=== PATIENT | male | born 1980 | race Caucasian/White ===

== ENCOUNTER 2018-08-07 17:47 | Emergency (ER) | payer MEDICAID, OTHER ==
[~2018-08-07] VITALS: Ht 162.6 cm; Wt 58.1 kg
[2018-08-07] MEDS ORDERED: HYDR-3326 PO (18:29)
[2018-08-07] MEDS ORDERED: ALEVE PO (18:29)
--- NOTE | 2018-08-07 19:35 | NUR ---
Dr. Jenkins at bedside for MSE.
--- NOTE | 2018-08-07 19:40 | NUR ---
Pt out of ER for xray.
[2018-08-07] MEDS ORDERED: KETOROLAC TROMETHAMINE 60 MG INJ IM ONE ×2 (19:43→19:45)
--- NOTE | 2018-08-07 20:00 | NUR ---
Pt back to Er from xray.
--- NOTE | 2018-08-07 20:35 | NUR ---
Patient discharged to home in stable conditon. States he does not have a specific place to stay at this time but somewhere around [place]. Written and verbal after care instructions given. Patient verbalizes understanding of instructions. Able to ambulate independently and will take the bus. All belongings are with patient at this time.
[2018-08-07 20:40] VITALS: BP 115/75
== END 2018-08-07 20:42 | disposition home or self-care (01) ==
LOC: ER 17:49
DX: M19.172 Post-traumatic osteoarthritis, left ankle and foot (principal); R10.2 Pelvic and perineal pain; M79.651 Pain in right thigh
CPT/HCPCS: 72170; 73551; 73610; 73630; A4663; J1885

== ENCOUNTER 2018-08-11 17:17 | Emergency (ER) | payer OTHER ==
[~2018-08-11] VITALS: Ht 162.6 cm; Wt 58.1 kg
[~2018-08-11 17:17] MED LIST: ALEVE PO; HYDR-3326 PO
[2018-08-11] MEDS ORDERED: NAPR-1009 PO (17:37)
[2018-08-11] MEDS ORDERED: PENICILLIN G BENZATHINE 2.4 MMU/4 ML DISP.SYRIN IM ONE ×2 (18:00→18:08)
--- NOTE | 2018-08-11 18:05 | NUR ---
PT IS IN ROOM #2A. DR ALONSO EVALUATED THE PT.
--- NOTE | 2018-08-11 18:43 | NUR ---
PT WAS D/C TO HOME. D/C INSTRUCTIONS GIVEN TO THE PT.
[2018-08-11 18:44] VITALS: BP 129/87
== END 2018-08-11 18:44 | disposition home or self-care (01) ==
LOC: ER 17:18
DX: Z20.2 Contact with and (suspected) exposure to infections with a predominantly sexual mode of transmission (principal); R53.83 Other fatigue; F17.200 Nicotine dependence, unspecified, uncomplicated; F12.10 Cannabis abuse, uncomplicated; Z59.0 Homelessness
CPT/HCPCS: 36415; 86592; 96372; 99283; A4663

== ENCOUNTER 2018-08-16 21:47 | Emergency (ER) | payer OTHER ==
[~2018-08-16] VITALS: Ht 162.6 cm; Wt 59.0 kg
[~2018-08-16 21:47] MED LIST changes: -ALEVE PO; +NAPR-1009 PO
[2018-08-16] MEDS ORDERED: HYDROCODONE/APAP 10-325 MG TABLET PO ONE (22:45)
[2018-08-16] MEDS ORDERED: KETOROLAC TROMETHAMINE 15 MG INJ IV ONE (22:45)
[2018-08-16] MEDS ORDERED: ASPIRIN 81 MG TAB.CHEW PO ONE (22:45)
[2018-08-16] MEDS ORDERED: ONDANSETRON ODT 4 MG TAB.RAPDIS SL ONE (22:45)
[2018-08-16 22:53] LABS: BASOPHILS # (AUTO) 0.1 K/uL (0.0-8.0); BASOPHILS % (AUTO) 1.2 % (0.0-2.0); EOSINOPHILS # (AUTO) 0.2 K/uL (0.0-0.7); EOSINOPHILS % (AUTO) 1.6 % (0.0-7.0); HEMOGLOBIN 12.5 g/dL (12.5-16.3); LYMPHOCYTES # (AUTO) 3.6 K/uL (20.0-40.0); LYMPHOCYTES % (AUTO) 35.1 % (20.5-51.5); MEAN CORPUSCULAR HGB CONC 35 g/dL (32.5-36.3); MEAN CORPUSCULAR VOLUME 89.7 fL (73.0-96.2); MONOCYTES # (AUTO) 1.1 K/uL (2.0-10.0); MONOCYTES % (AUTO) 10.3 % (0.0-11.0); NEUTROPHILS # (AUTO) 5.3 K/uL (1.8-8.9); NEUTROPHILS % (AUTO) 51.8 % (38.5-71.5); PLATELET COUNT (AUTO) 351 K/uL (152-348); RED BLOOD CELL COUNT(AUTO) 4.01 MIL/uL (4.06-5.63); WHITE BLOOD COUNT (AUTO) 10.3 K/uL (3.6-10.2)
[2018-08-16] MEDS ORDERED: ASPIRIN 81 MG TAB.CHEW ONE (22:54)
[2018-08-16] MEDS ORDERED: HYDROCODONE/APAP 10-325 MG TABLET ONE (22:55)
[2018-08-16] MEDS ORDERED: KETOROLAC TROMETHAMINE 60 MG INJ IM ONE (22:57)
[2018-08-16] MEDS ORDERED: ONDANSETRON ODT 4 MG TAB.RAPDIS ONE (22:58)
[2018-08-16 23:03] LABS: CREATININE 0.9 mg/dL (0.6-1.3); POTASSIUM 3.8 mmol/L (3.5-5.1)
[2018-08-16 23:16] LABS: BILIRUBIN,DIRECT 0.1 mg/dL (0.0-0.2); BILIRUBIN,TOTAL 0.2 mg/dL (0.2-1.0); TOTAL PROTEIN, SERUM 7.3 g/dL (6.4-8.2)
--- NOTE | 2018-08-16 23:32 | NUR ---
SARAH AT BEDSIDE DISCUSSED LAB TEST RESULTS AND XRAY RESULTS AND ALL TEST ARE NORMAL.ADVISED TO FOLLOW UP WITH HIS PRIMARY PHYSICIAN .V/S WNL .NO RESPIRATORY DISTRESS NOTED BREATHING EVEN AND LABORED .
--- NOTE | 2018-08-16 23:34 | NUR ---
Patient discharged to home in stable conditon. Written and verbal after care instructions given. Patient verbalizes understanding of instructions.V/S WNL . NO SOB .AMBULATORY .
--- NOTE | 2018-08-16 23:45 | NUR ---
Patient given written and verbal discharge instructions. Patient verbalizes understanding of instructions. Patient is ambulatory with steady gait. Refuses offer of snf placement. Patient given list of available shelters in surrounding area.
[2018-08-16 23:46] VITALS: BP 120/65
== END 2018-08-16 23:47 | disposition home or self-care (01) ==
LOC: ER 21:48
DX: R05 Cough (principal); R07.9 Chest pain, unspecified; Z71.6 Tobacco abuse counseling; F17.200 Nicotine dependence, unspecified, uncomplicated; F12.10 Cannabis abuse, uncomplicated; Z59.0 Homelessness
CPT/HCPCS: 36415; 71045; 80048; 80076; 83880; 84484; 85025; 93005; 96374; 99285; 99406; A4663; J1885; Q0162; 70030-TC

== ENCOUNTER 2018-08-24 23:07 | Emergency (ER) | payer OTHER ==
[~2018-08-24] VITALS: Ht 162.6 cm; Wt 59.9 kg
--- NOTE | 2018-08-24 23:27 | NUR ---
PT BROUGHT INTRIAGE AREA AND HAD EKG DONE.NO BEDS AVAILABLE AT PRESENT TIME
--- NOTE | 2018-08-25 02:09 | NUR ---
Dr. Jenkins at bedside for MSE.
--- NOTE | 2018-08-25 02:14 | NUR ---
Pt provided urine sample, sent to lab.
[2018-08-25] MEDS ORDERED: PENICILLIN G BENZATHINE 2.4 MMU/4 ML DISP.SYRIN IM ONE ×2 (03:00→03:27)
--- NOTE | 2018-08-25 03:05 | NUR ---
Xray at bedside.
[2018-08-25 03:07] LABS: BASOPHILS # (AUTO) 0.1 K/uL (0.0-8.0); BASOPHILS % (AUTO) 1.1 % (0.0-2.0); EOSINOPHILS # (AUTO) 0.2 K/uL (0.0-0.7); EOSINOPHILS % (AUTO) 1.9 % (0.0-7.0); HEMATOCRIT 36.8 % (36.7-47.1); HEMOGLOBIN 12.8 g/dL (12.5-16.3); LYMPHOCYTES # (AUTO) 3.6 K/uL (20.0-40.0); LYMPHOCYTES % (AUTO) 37.5 % (20.5-51.5); MEAN CORPUSCULAR HEMOGLOBIN 30.9 uug (23.8-33.4); MEAN CORPUSCULAR HGB CONC 35 g/dL (32.5-36.3); MONOCYTES % (AUTO) 10.8 % (0.0-11.0); NEUTROPHILS # (AUTO) 4.7 K/uL (1.8-8.9); NEUTROPHILS % (AUTO) 48.7 % (38.5-71.5); PLATELET COUNT (AUTO) 361 K/uL (152-348); RED BLOOD CELL COUNT(AUTO) 4.13 MIL/uL (4.06-5.63); WHITE BLOOD COUNT (AUTO) 9.7 K/uL (3.6-10.2)
--- NOTE | 2018-08-25 03:10 | NUR ---
Pt out of ER for CT.
[2018-08-25 03:16] LABS: CARBON DIOXIDE 28 mmol/L (21-32); CHLORIDE 109 mmol/L (98-107); CREATININE 0.9 mg/dL (0.6-1.3); GLUCOSE 90 mg/dL (74-106); POTASSIUM 3.9 mmol/L (3.5-5.1); UREA NITROGEN, BLOOD 21 mg/dL (7-18)
--- NOTE | 2018-08-25 03:20 | NUR ---
Pt back to ER from CT.
[2018-08-25 03:22] LABS: ALANINE AMINOTRANSFERASE 27 U/L (16-63); ALKALINE PHOSPHATASE 61 U/L (50-136); ASPARTATE AMINOTRANSFERASE 18 U/L (15-37); BILIRUBIN,DIRECT < 0.1 mg/dL (0.0-0.2); BILIRUBIN,TOTAL 0.1 mg/dL (0.2-1.0)
--- NOTE | 2018-08-25 04:30 | NUR ---
Pt sleeping, no acute signs of distress.
--- NOTE | 2018-08-25 05:30 | NUR ---
Pt sleeping, no acute signs of distress.
--- NOTE | 2018-08-25 06:31 | NUR ---
Pt out of ER for CT.
--- NOTE | 2018-08-25 06:45 | NUR ---
Pt back to ER from CT.
--- NOTE | 2018-08-25 07:01 | NUR ---
Report given to Elma Graham.
--- NOTE | 2018-08-25 07:40 | NUR ---
Patient is resting comfortably in bed with eyes closed. PATIENT IS PAIN FREE AT THIS TIME.
--- NOTE | 2018-08-25 07:41 | NUR ---
Patient given written and verbal discharge instructions. Patient verbalizes understanding of instructions. Patient is ambulatory with steady gait. Refuses offer of half-way placement. Patient given list of available shelters in surrounding area.
== END 2018-08-25 07:44 | disposition home or self-care (01) ==
LOC: ER 23:08
DX: S16.1XXA Strain of muscle, fascia and tendon at neck level, initial encounter (principal); R07.89 Other chest pain; F17.200 Nicotine dependence, unspecified, uncomplicated; F12.10 Cannabis abuse, uncomplicated; Z59.0 Homelessness; X58.XXXA Exposure to other specified factors, initial encounter; Y93.89 Activity, other specified; Y92.89 Other specified places as the place of occurrence of the external cause; Y99.8 Other external cause status
CPT/HCPCS: 36415; 70030-TC; 71045; 72125; 85025; 85730; 93005; A4663

== ENCOUNTER 2018-10-04 20:51 | Emergency (ER) | payer OTHER ==
[~2018-10-04] VITALS: Ht 162.6 cm; Wt 59.0 kg
[2018-10-04 21:29] LABS: BASOPHILS # (AUTO) 0.1 K/uL (0.0-8.0); BASOPHILS % (AUTO) 0.7 % (0.0-2.0); EOSINOPHILS % (AUTO) 0.4 % (0.0-7.0); HEMATOCRIT 42.1 % (36.7-47.1); HEMOGLOBIN 14.5 g/dL (12.5-16.3); LYMPHOCYTES # (AUTO) 2.3 K/uL (20.0-40.0); MEAN CORPUSCULAR HEMOGLOBIN 30.9 uug (23.8-33.4); MEAN CORPUSCULAR HGB CONC 35 g/dL (32.5-36.3); MEAN CORPUSCULAR VOLUME 89.5 fL (73.0-96.2); MONOCYTES # (AUTO) 1.5 K/uL (2.0-10.0); MONOCYTES % (AUTO) 17.3 % (0.0-11.0); NEUTROPHILS # (AUTO) 4.6 K/uL (1.8-8.9); NEUTROPHILS % (AUTO) 54.6 % (38.5-71.5); PLATELET COUNT (AUTO) 401 K/uL (152-348); WHITE BLOOD COUNT (AUTO) 8.4 K/uL (3.6-10.2)
[2018-10-04 21:33] LABS: NEUTROPHILS % (MANUAL) 0 % (42-75)
[2018-10-04 21:37] LABS: ETHANOL < 3 MG/DL (0-0)
[2018-10-04 21:42] LABS: ALANINE AMINOTRANSFERASE 26 U/L (16-63); ALKALINE PHOSPHATASE 86 U/L (50-136); ASPARTATE AMINOTRANSFERASE 17 U/L (15-37); BILIRUBIN,DIRECT 0.1 mg/dL (0.0-0.2); BILIRUBIN,TOTAL 0.5 mg/dL (0.2-1.0); CARBON DIOXIDE 26 mmol/L (21-32); CHLORIDE 97 mmol/L (98-107); CREATININE 0.8 mg/dL (0.6-1.3); GLUCOSE 95 mg/dL (74-106); POTASSIUM 3.5 mmol/L (3.5-5.1); TOTAL PROTEIN, SERUM 8.7 g/dL (6.4-8.2); UREA NITROGEN, BLOOD 12 mg/dL (7-18)
[2018-10-04] MEDS ORDERED: OLANZAPINE 5 MG TABLET PO ONE (21:45)
[2018-10-04] MEDS ORDERED: LORAZEPAM 0.5 MG TABLET PO ONE (21:45)
[2018-10-04] MEDS ORDERED: LORAZEPAM 1 MG TABLET ONE (21:46)
[2018-10-04] MEDS ORDERED: OLANZAPINE 5 MG TABLET ONE (21:46)
[2018-10-04] MEDS ORDERED: SERT50TA PO (21:49)
[2018-10-04] MEDS ORDERED: RISP4TAB4 PO (21:49)
[2018-10-04 21:52] LABS: ACETAMINOPHEN < 2.0 ug/mL (10-30)
[2018-10-04 22:42] LABS: *BILIRUBIN,URIN NEGATIVE (NEGATIVE); *BLOOD, URINE NEGATIVE (NEGATIVE); *CLARITY,URINE CLEAR (CLEAR); *COLOR,URINE YELLOW (YELLOW); *KETONES,URINE TRACE (NEGATIVE); *PROTEIN,URINE NEGATIVE (NEGATIVE); *UROBILINOGEN,URINE 0.2 E.U./dl (NORMAL); LEUKOCYTE ESTERASE ,URINE NEGATIVE (NEGATIVE); NITRITE, URINE NEGATIVE (NEGATIVE); UGLUCOSE NEGATIVE (NEGATIVE)
[2018-10-04 22:53] LABS: *AMPHETAMINE, URINE POSITIVE (NEGATIVE); *BARBITURATE, URINE NEGATIVE (NEGATIVE); *CANNABINOID, URINE POSITIVE (NEGATIVE); *COCCAINE, URINE NEGATIVE (NEGATIVE); *OPIATE, URINE NEGATIVE (NEGATIVE); *PHENCYCLIDINE SCREEN,URINE NEGATIVE (NEGATIVE)
[2018-10-04 23:01] LABS: BACTERIA,URINE NONE SEEN /HPF (NONE SEEN); MUCUS,URINE MODERATE /LPF (0-FEW); RBC,URINE NONE SEEN /HPF (0-3); SQUAMOUS EPITHELIAL CELL,UR FEW /HPF (NONE SEEN); WBC,URINE 0-3 /HPF (0-3)
--- NOTE | 2018-10-04 23:44 | NUR ---
paged Radha Albert RN for PET eval.
--- NOTE | 2018-10-05 00:30 | NUR ---
Patient is resting comfortably in bed with eyes closed
--- NOTE | 2018-10-05 01:57 | NUR ---
Patient is resting comfortably in bed with eyes closed
--- NOTE | 2018-10-05 03:10 | NUR ---
Patient is resting comfortably in bed with eyes closed
--- NOTE | 2018-10-05 04:30 | NUR ---
Patient is resting comfortably in bed with eyes closed
--- NOTE | 2018-10-05 05:33 | NUR ---
Patient is resting comfortably in bed with eyes closed
--- NOTE | 2018-10-05 06:10 | NUR ---
DIAMOND Garcia, at bedside for PET evaluation.
--- NOTE | 2018-10-05 07:55 | NUR ---
wander luevano provided for pt.
--- NOTE | 2018-10-05 08:00 | NUR ---
amanda called and wanted to make sure that the pt understands that the fascility is smoke free and patches would be provided. pt has to cooperate and takes meds. no aggressive behavior is tolerated. pt accepted the criteria and is willing to be transferd to [facility].
--- NOTE | 2018-10-05 08:14 | NUR ---
talked to amanda at [facility]. pt is going to [id number] to liana langley md is dr. Mcintyre.
--- NOTE | 2018-10-05 08:15 | NUR ---
called jamel roach 4 hrs, rout number [id number], called supervisor asbestos removal regarding the eta.
--- NOTE | 2018-10-05 09:19 | NUR ---
per ticket sales supervisor, eta for ambulance now is 1100.
--- NOTE | 2018-10-05 10:23 | NUR ---
gave reportt to brandt at [place] [phone]
--- NOTE | 2018-10-05 12:09 | NUR ---
Pt transfered [facility] NAD noted upon transfer, pt cooperative and verbalized understanding of plan of care.
== END 2018-10-05 12:18 | disposition short-term general hospital (02) ==
LOC: ER 20:55
DX: R45.851 Suicidal ideations (principal); F20.9 Schizophrenia, unspecified; F15.10 Other stimulant abuse, uncomplicated; F11.10 Opioid abuse, uncomplicated; F17.200 Nicotine dependence, unspecified, uncomplicated; Z59.0 Homelessness
CPT/HCPCS: 36415; 80048; 80076; 80307; 81001; 85025; 93005; 99285; G0480 ×2; G0481; A4663

== ENCOUNTER 2018-10-11 16:20 | Emergency (ER) | payer OTHER ==
[~2018-10-11] VITALS: Ht 162.6 cm; Wt 59.0 kg
[~2018-10-11 16:20] MED LIST changes: +RISP4TAB4 PO; +SERT50TA PO
[2018-10-11] MEDS ORDERED: LIDOCAINE 5% PATCH TD ONE ×2 (17:15→17:23)
[2018-10-11] MEDS ORDERED: GABAPENTIN 400 MG CAPSULE PO ONE (17:15)
[2018-10-11] MEDS ORDERED: GABAPENTIN 400 MG CAPSULE ONE (17:23)
[2018-10-11 17:43] VITALS: BP 133/77
== END 2018-10-11 17:44 | disposition home or self-care (01) ==
LOC: ER 16:22
DX: G89.29 Other chronic pain (principal); M25.572 Pain in left ankle and joints of left foot; F12.10 Cannabis abuse, uncomplicated; F17.200 Nicotine dependence, unspecified, uncomplicated; Z59.0 Homelessness
CPT/HCPCS: 73600; A4663

== ENCOUNTER 2018-10-11 21:44 | Emergency (ER) | payer OTHER ==
[~2018-10-11] VITALS: Ht 162.6 cm; Wt 59.0 kg
--- NOTE | 2018-10-11 22:09 | NUR ---
Patient walked in to ER c/o hearing voices. Patient states no SI or HI, requesting to return to [facility], which he has been transferred to from this ER before. To room 3A.
[2018-10-11] MEDS ORDERED: OLANZAPINE 5 MG TABLET ONE (22:13)
[2018-10-11] MEDS ORDERED: OLANZAPINE 5 MG TABLET PO ONE (22:15)
[2018-10-11 22:27] LABS: BASOPHILS # (AUTO) 0.1 K/uL (0.0-8.0); BASOPHILS % (AUTO) 0.9 % (0.0-2.0); EOSINOPHILS # (AUTO) 0.1 K/uL (0.0-0.7); EOSINOPHILS % (AUTO) 1.4 % (0.0-7.0); HEMATOCRIT 36.2 % (36.7-47.1); HEMOGLOBIN 12.5 g/dL (12.5-16.3); LYMPHOCYTES # (AUTO) 3.8 K/uL (20.0-40.0); MEAN CORPUSCULAR HEMOGLOBIN 31.1 uug (23.8-33.4); MEAN CORPUSCULAR HGB CONC 35 g/dL (32.5-36.3); MEAN CORPUSCULAR VOLUME 90.1 fL (73.0-96.2); MONOCYTES # (AUTO) 1.6 K/uL (2.0-10.0); MONOCYTES % (AUTO) 15.3 % (0.0-11.0); NEUTROPHILS # (AUTO) 4.7 K/uL (1.8-8.9); NEUTROPHILS % (AUTO) 45.4 % (38.5-71.5); PLATELET COUNT (AUTO) 341 K/uL (152-348); RED BLOOD CELL COUNT(AUTO) 4.02 MIL/uL (4.06-5.63); WHITE BLOOD COUNT (AUTO) 10.3 K/uL (3.6-10.2)
[2018-10-11 22:31] LABS: *BILIRUBIN,URIN NEGATIVE (NEGATIVE); *BLOOD, URINE NEGATIVE (NEGATIVE); *CLARITY,URINE CLEAR (CLEAR); *COLOR,URINE YELLOW (YELLOW); *KETONES,URINE NEGATIVE (NEGATIVE); *PROTEIN,URINE NEGATIVE (NEGATIVE); *UROBILINOGEN,URINE 0.2 E.U./dl (NORMAL); LEUKOCYTE ESTERASE ,URINE NEGATIVE (NEGATIVE); NITRITE, URINE NEGATIVE (NEGATIVE); UGLUCOSE NEGATIVE (NEGATIVE)
[2018-10-11 22:36] LABS: CARBON DIOXIDE 28 mmol/L (21-32); CHLORIDE 104 mmol/L (98-107); GLUCOSE 97 mg/dL (74-106); POTASSIUM 3.8 mmol/L (3.5-5.1); UREA NITROGEN, BLOOD 17 mg/dL (7-18)
[2018-10-11 22:40] LABS: WBC,URINE NONE SEEN /HPF (0-3)
[2018-10-11 22:43] LABS: BAND % (MANUAL) 2 % (0-10); EOSINOPHILS % (MANUAL) 1 % (0-8); LYMPHOCYTES % (MANUAL) 36 % (20-40); MONOCYTES % (MANUAL) 12 % (2-10); NEUTROPHILS % (MANUAL) 49 % (42-75)
[2018-10-11 22:45] LABS: ETHANOL < 3 MG/DL (0-0)
[2018-10-11 22:46] LABS: *AMPHETAMINE, URINE NEGATIVE (NEGATIVE); *BARBITURATE, URINE NEGATIVE (NEGATIVE); *CANNABINOID, URINE POSITIVE (NEGATIVE); *COCCAINE, URINE NEGATIVE (NEGATIVE); *OPIATE, URINE NEGATIVE (NEGATIVE); *PHENCYCLIDINE SCREEN,URINE NEGATIVE (NEGATIVE)
[2018-10-11 22:49] LABS: ACETAMINOPHEN < 2.0 ug/mL (10-30); ALANINE AMINOTRANSFERASE 23 U/L (16-63); ALKALINE PHOSPHATASE 67 U/L (50-136); ASPARTATE AMINOTRANSFERASE 14 U/L (15-37); BILIRUBIN,DIRECT 0.1 mg/dL (0.0-0.2); BILIRUBIN,TOTAL 0.1 mg/dL (0.2-1.0)
--- NOTE | 2018-10-11 23:00 | NUR ---
Patient medically cleared per ERMD, call placed to Art Capilla (SENIOR UNIX ADMINISTRATOR) for evaluation, ETA 60 min.
--- NOTE | 2018-10-12 00:15 | NUR ---
Patient accepted by Dr. PARKER at [facility].
--- NOTE | 2018-10-12 00:20 | NUR ---
Call placed to [facility] for transportation to [facility], Trip #[phone], ETA 0130.
--- NOTE | 2018-10-12 01:20 | NUR ---
SBAR report given to Sis at [facility].
--- NOTE | 2018-10-12 01:59 | NUR ---
Patient Tranfers to outside Facility Physician: Dr. PARKER Location: [facility]
== END 2018-10-12 02:00 | disposition short-term general hospital (02) ==
LOC: ER 21:46
DX: F29 Unspecified psychosis not due to a substance or known physiological condition (principal); Z04.6 Encounter for general psychiatric examination, requested by authority; Z59.0 Homelessness; Z79.899 Other long term (current) drug therapy
CPT/HCPCS: 36415; 71045; 80048; 80076; 80307; 81001; 85025; 93005; 99285; G0480 ×2; G0481; A4663

== ENCOUNTER 2018-11-20 02:48 | Emergency (ER) | END 2018-11-20 08:49 | disposition home or self-care (01) | DX: F25.9 Schizoaffective disorder, unspecified (principal); F11.10 Opioid abuse, uncomplicated; F15.10 Other stimulant abuse, uncomplicated; Z59.0 Homelessness | CPT/HCPCS: 36415; 71045; 80048; 80076; 80307; 81001; 85025; 96372; 99284; G0480 ×2; G0481; J2060 ==

== ENCOUNTER 2018-12-20 15:02 | Emergency (ER) | payer OTHER ==
[~2018-12-20] VITALS: Ht 162.6 cm; Wt 61.7 kg
[2018-12-20] MEDS ORDERED: RISP3TAB5 PO (15:14)
[2018-12-20] MEDS ORDERED: COGENTIN (15:14)
[2018-12-20] MEDS ORDERED: SERT100T PO (15:14)
--- NOTE | 2018-12-20 15:17 | NUR ---
PT A/OX4, PRESENTS TO THE ER C/O SI. PT REPORTS AUDITORY HALLUCINATIONS THAT ARE TELLING HIM TO HURT HIMSELF - HAS A PLAN TO USE A KNIFE TO CUT AND STAB HIMSELF BUT DOES NOT HAVE A KNIFE IN POSSESSION. SUICIDE PRECAUTIONS OBSERVED - ALL BELONGINGS OUT OF PT'S ROOM AND AT NURSING STATION. PT DENIES PAIN, C/P, SOB, N/V/D, DIZZINESS, HEADACHE.
--- NOTE | 2018-12-20 15:21 | NUR ---
CALLED SECURITY TO REQUEST FOR 1:1 SITTER FOR SUICIDE PRECAUTION.
--- NOTE | 2018-12-20 15:22 | NUR ---
NURSING AGRONOMY PROFESSOR AWARE. SECURITY AT BEDSIDE FOR 1:1 OBSERVATION.
--- NOTE | 2018-12-20 15:30 | NUR ---
RECYCLABLE MATERIALS DISTRIBUTOR AT BEDSIDE.
[2018-12-20 15:31] LABS: *BILIRUBIN,URIN NEGATIVE (NEGATIVE); *BLOOD, URINE NEGATIVE (NEGATIVE); *CLARITY,URINE CLEAR (CLEAR); *COLOR,URINE YELLOW (YELLOW); *KETONES,URINE TRACE (NEGATIVE); *UROBILINOGEN,URINE 0.2 E.U./dl (NORMAL); LEUKOCYTE ESTERASE ,URINE NEGATIVE (NEGATIVE); NITRITE, URINE NEGATIVE (NEGATIVE); UGLUCOSE NEGATIVE (NEGATIVE)
[2018-12-20 15:40] LABS: BASOPHILS % (AUTO) 0.6 % (0.0-2.0); EOSINOPHILS # (AUTO) 0.1 K/uL (0.0-0.7); EOSINOPHILS % (AUTO) 1.7 % (0.0-7.0); HEMATOCRIT 39.6 % (36.7-47.1); HEMOGLOBIN 13.1 g/dL (12.5-16.3); LYMPHOCYTES # (AUTO) 2.2 K/uL (20.0-40.0); LYMPHOCYTES % (AUTO) 31.2 % (20.5-51.5); MEAN CORPUSCULAR HEMOGLOBIN 29.4 uug (23.8-33.4); MEAN CORPUSCULAR HGB CONC 33 g/dL (32.5-36.3); MONOCYTES # (AUTO) 0.8 K/uL (2.0-10.0); MONOCYTES % (AUTO) 10.6 % (0.0-11.0); NEUTROPHILS % (AUTO) 55.9 % (38.5-71.5); PLATELET COUNT (AUTO) 332 K/uL (152-348); RED BLOOD CELL COUNT(AUTO) 4.45 MIL/uL (4.06-5.63); WHITE BLOOD COUNT (AUTO) 7.2 K/uL (3.6-10.2)
[2018-12-20 15:41] LABS: MUCUS,URINE MODERATE /LPF (0-FEW); WBC,URINE 0-3 /HPF (0-3)
[2018-12-20 15:46] LABS: CARBON DIOXIDE 31 mmol/L (21-32); CHLORIDE 99 mmol/L (98-107); GLUCOSE 100 mg/dL (74-106); POTASSIUM 3.6 mmol/L (3.5-5.1); UREA NITROGEN, BLOOD 9 mg/dL (7-18)
--- NOTE | 2018-12-20 15:51 | NUR ---
CARLOS BILLY AT BEDSIDE FOR MSE.
[2018-12-20 15:52] LABS: ALANINE AMINOTRANSFERASE 20 U/L (16-63); ALKALINE PHOSPHATASE 67 U/L (50-136); ASPARTATE AMINOTRANSFERASE 11 U/L (15-37); BILIRUBIN,DIRECT 0.1 mg/dL (0.0-0.2); BILIRUBIN,TOTAL 0.2 mg/dL (0.2-1.0); ETHANOL < 3 MG/DL (0-0); TOTAL PROTEIN, SERUM 7.6 g/dL (6.4-8.2)
[2018-12-20 15:55] LABS: *AMPHETAMINE, URINE POSITIVE (NEGATIVE); *BARBITURATE, URINE NEGATIVE (NEGATIVE); *CANNABINOID, URINE POSITIVE (NEGATIVE); *COCCAINE, URINE NEGATIVE (NEGATIVE); *OPIATE, URINE NEGATIVE (NEGATIVE); *PHENCYCLIDINE SCREEN,URINE NEGATIVE (NEGATIVE)
--- NOTE | 2018-12-20 16:00 | NUR ---
CALLED JACEK POPE RN, CRISIS ANODE REBUILDER, FOR PSYCH ETHEL. ETA 1 HOUR.
--- NOTE | 2018-12-20 16:47 | NUR ---
JACEK RN, AT PT'S BEDSIDE FOR CRISIS EVAL.
--- NOTE | 2018-12-20 18:00 | NUR ---
PT RESTING COMFORTABLY IN BED. 1:1 SITTER AT BEDSIDE. PT WILL BE ADMITTED VOLUNTARILY AT [facility]. [id number] [place], [place] ADMITTING PSYCH: DR. PEÑA REPORT TO BE GIVEN TO NURSE [phone] EXT [phone]
--- NOTE | 2018-12-20 18:08 | NUR ---
CALLED [facility] FOR TRANSFER TO [facility]. TRIP # [id number] 1999 SPOKE W/ ATIF.
--- NOTE | 2018-12-20 18:55 | NUR ---
SHIFT REPORT GIVEN TO ZACHAYR HATHAWAY.
--- NOTE | 2018-12-20 19:26 | NUR ---
[facility] called for update for transport. Johnie stated they are en route 12 minutes.
--- NOTE | 2018-12-20 20:40 | NUR ---
Gave report to Melia from UNIT 2 at [facility].
--- NOTE | 2018-12-20 20:40 | NUR ---
Patient Transferred to outside Facility Physician:Dr. Presley Location: [facility]
--- NOTE | 2018-12-20 20:47 | NUR ---
Patient discharged another facility via [facility]. Written and verbal after care instructions given. Patient verbalizes understanding of instructions. Patient transported out of dept via stretcher and two [facility] personnel
[2018-12-20 20:48] VITALS: BP 135/70
== END 2018-12-20 20:47 | disposition home or self-care (01) ==
LOC: ER 15:03
DX: F25.9 Schizoaffective disorder, unspecified (principal); F29 Unspecified psychosis not due to a substance or known physiological condition; F11.10 Opioid abuse, uncomplicated; F15.10 Other stimulant abuse, uncomplicated; Z59.0 Homelessness; Z79.1 Long term (current) use of non-steroidal anti-inflammatories (NSAID); Z79.899 Other long term (current) drug therapy
CPT/HCPCS: 36415; 80048; 80076; 80307; 81001; 85025; 99285; G0480; A4663

== ENCOUNTER 2019-01-16 18:33 | Emergency (ER) | payer OTHER ==
[~2019-01-16] VITALS: Ht 162.6 cm; Wt 59.9 kg
[~2019-01-16 18:33] MED LIST changes: +COGENTIN; -HYDR-3326 PO; -NAPR-1009 PO; +RISP3TAB5 PO; -RISP4TAB4 PO; +SERT100T PO; -SERT50TA PO
--- NOTE | 2019-01-16 19:10 | NUR ---
Urine & blood collected, pending medical clearance & psych evaluation@this time-SBAR to TIM Betancourt
--- NOTE | 2019-01-16 19:16 | NUR ---
Patient eating in bed. NAD
[2019-01-16 19:20] LABS: BASOPHILS # (AUTO) 0.1 K/uL (0.0-8.0); BASOPHILS % (AUTO) 0.7 % (0.0-2.0); EOSINOPHILS # (AUTO) 0.1 K/uL (0.0-0.7); EOSINOPHILS % (AUTO) 0.5 % (0.0-7.0); HEMATOCRIT 37.9 % (36.7-47.1); LYMPHOCYTES # (AUTO) 2.7 K/uL (20.0-40.0); LYMPHOCYTES % (AUTO) 20.4 % (20.5-51.5); MEAN CORPUSCULAR HGB CONC 34 g/dL (32.5-36.3); MEAN CORPUSCULAR VOLUME 87.5 fL (73.0-96.2); MONOCYTES # (AUTO) 1.4 K/uL (2.0-10.0); MONOCYTES % (AUTO) 10.3 % (0.0-11.0); NEUTROPHILS # (AUTO) 8.9 K/uL (1.8-8.9); NEUTROPHILS % (AUTO) 68.1 % (38.5-71.5); PLATELET COUNT (AUTO) 305 K/uL (152-348); RED BLOOD CELL COUNT(AUTO) 4.33 MIL/uL (4.06-5.63); WHITE BLOOD COUNT (AUTO) 13.1 K/uL (3.6-10.2)
[2019-01-16 19:28] LABS: CARBON DIOXIDE 25 mmol/L (21-32); CHLORIDE 100 mmol/L (98-107); CREATININE 0.8 mg/dL (0.6-1.3); GLUCOSE 131 mg/dL (74-106); POTASSIUM 3.5 mmol/L (3.5-5.1); UREA NITROGEN, BLOOD 17 mg/dL (7-18)
--- NOTE | 2019-01-16 19:29 | NUR ---
[facility] crisis team called. ETA 1 hour.
[2019-01-16 19:31] LABS: *AMPHETAMINE, URINE NEGATIVE (NEGATIVE); *BARBITURATE, URINE NEGATIVE (NEGATIVE); *CANNABINOID, URINE POSITIVE (NEGATIVE); *COCCAINE, URINE NEGATIVE (NEGATIVE); *OPIATE, URINE NEGATIVE (NEGATIVE); *PHENCYCLIDINE SCREEN,URINE NEGATIVE (NEGATIVE)
[2019-01-16 19:39] LABS: ETHANOL 137 MG/DL (0-0)
[2019-01-16 19:42] LABS: ALANINE AMINOTRANSFERASE 34 U/L (16-63); ALKALINE PHOSPHATASE 69 U/L (50-136); ASPARTATE AMINOTRANSFERASE 25 U/L (15-37); BILIRUBIN,DIRECT < 0.1 mg/dL (0.0-0.2); BILIRUBIN,TOTAL 0.2 mg/dL (0.2-1.0); TOTAL PROTEIN, SERUM 8.4 g/dL (6.4-8.2)
[2019-01-16 19:45] LABS: ACETAMINOPHEN < 2.0 ug/mL (10-30)
[2019-01-16 22:15] LABS: *BILIRUBIN,URIN NEGATIVE (NEGATIVE); *BLOOD, URINE NEGATIVE (NEGATIVE); *CLARITY,URINE CLOUDY (CLEAR); *COLOR,URINE YELLOW (YELLOW); *KETONES,URINE NEGATIVE (NEGATIVE); *UROBILINOGEN,URINE 0.2 E.U./dl (NORMAL); LEUKOCYTE ESTERASE ,URINE NEGATIVE (NEGATIVE); NITRITE, URINE NEGATIVE (NEGATIVE); PH,URINE 5.5 (5.0-8.0); UGLUCOSE NEGATIVE (NEGATIVE)
[2019-01-16 22:31] LABS: MUCUS,URINE MODERATE /LPF (0-FEW); URINE AMORPHOUS URATE MANY /HPF; WBC,URINE NONE SEEN /HPF (0-3)
--- NOTE | 2019-01-16 23:16 | NUR ---
Patient sleeping in bed. NAD.
--- NOTE | 2019-01-16 23:45 | NUR ---
Faxed UA and Current alcohol level to [facility]
--- NOTE | 2019-01-17 01:05 | NUR ---
Patient in bed awake, no acute distress noted at this time.
[2019-01-17] MEDS ORDERED: ACETAMINOPHEN 325 MG TABLET PO ONE (01:45)
[2019-01-17] MEDS ORDERED: ACETAMINOPHEN 325 MG TABLET ONE (01:47)
--- NOTE | 2019-01-17 01:49 | NUR ---
Call to [facility] placed, spoke to Yan. ETA 10-15 minutes. Ticket #[id number]
--- NOTE | 2019-01-17 01:49 | NUR ---
Patient accepted at [facility] by Dr. Presley. Nurse to nurse report @ , ext [phone]
--- NOTE | 2019-01-17 02:51 | NUR ---
Pt. admitted to [facility] , under care of Dr. Serrano Report given to Mariposa. Patient NAD stable for transfer.
== END 2019-01-17 02:55 | disposition other institution (70) ==
LOC: ER 18:34
DX: R44.0 Auditory hallucinations (principal); F32.9 Major depressive disorder, single episode, unspecified; F17.290 Nicotine dependence, other tobacco product, uncomplicated; F11.10 Opioid abuse, uncomplicated; F15.10 Other stimulant abuse, uncomplicated; Z59.0 Homelessness; Z79.899 Other long term (current) drug therapy
CPT/HCPCS: 36415; 80048; 80076; 80307; 81001; 85025; 99285; 99406; G0480 ×3; G0481; A4663

== ENCOUNTER 2019-01-21 15:33 | Emergency (ER) | payer OTHER ==
[~2019-01-21] VITALS: Ht 162.6 cm; Wt 59.0 kg
--- NOTE | 2019-01-21 16:01 | NUR ---
PATIENT IS AMBULATORY, HE IS AWAKE AND ALERT...
--- NOTE | 2019-01-21 17:19 | NUR ---
SECURITY AT BEDSIDE FOR CONSTANT OBSERVATION. PATIENT'S BELONGINGS AWAY FROM HIM
--- NOTE | 2019-01-21 17:37 | NUR ---
PATIENT HAS A SLEEPING BAG AND LONG PANTS, LONG SLEEVE SHIRT AND SOME SNACKS IN A BIG GREEN BAG WHICH IS AT THE NURSES STATION. HE ATE 2 COOKIES AND IS NOW SITTING UP EATING A WARM DINNER.
[2019-01-21 17:39] LABS: BASOPHILS # (AUTO) 0.1 K/uL (0.0-8.0); BASOPHILS % (AUTO) 0.8 % (0.0-2.0); EOSINOPHILS # (AUTO) 0.1 K/uL (0.0-0.7); EOSINOPHILS % (AUTO) 1.3 % (0.0-7.0); HEMOGLOBIN 12.2 g/dL (12.5-16.3); LYMPHOCYTES # (AUTO) 2.4 K/uL (20.0-40.0); LYMPHOCYTES % (AUTO) 27.7 % (20.5-51.5); MEAN CORPUSCULAR HEMOGLOBIN 28.7 uug (23.8-33.4); MEAN CORPUSCULAR HGB CONC 33 g/dL (32.5-36.3); MEAN CORPUSCULAR VOLUME 87.1 fL (73.0-96.2); MONOCYTES # (AUTO) 0.8 K/uL (2.0-10.0); MONOCYTES % (AUTO) 8.7 % (0.0-11.0); NEUTROPHILS # (AUTO) 5.3 K/uL (1.8-8.9); NEUTROPHILS % (AUTO) 61.5 % (38.5-71.5); PLATELET COUNT (AUTO) 303 K/uL (152-348); RED BLOOD CELL COUNT(AUTO) 4.24 MIL/uL (4.06-5.63); WHITE BLOOD COUNT (AUTO) 8.7 K/uL (3.6-10.2)
--- NOTE | 2019-01-21 17:40 | NUR ---
HOMELESS CHECKLIST INITIATED BUT NOT YET COMPLETE...
[2019-01-21 17:47] LABS: *BILIRUBIN,URIN NEGATIVE (NEGATIVE); *BLOOD, URINE NEGATIVE (NEGATIVE); *CLARITY,URINE CLEAR (CLEAR); *COLOR,URINE YELLOW (YELLOW); *KETONES,URINE NEGATIVE (NEGATIVE); *UROBILINOGEN,URINE 0.2 E.U./dl (NORMAL); LEUKOCYTE ESTERASE ,URINE NEGATIVE (NEGATIVE); NITRITE, URINE NEGATIVE (NEGATIVE); UGLUCOSE NEGATIVE (NEGATIVE)
[2019-01-21 17:49] LABS: CARBON DIOXIDE 27 mmol/L (21-32); CHLORIDE 99 mmol/L (98-107); CREATININE 0.7 mg/dL (0.6-1.3); GLUCOSE 111 mg/dL (74-106); POTASSIUM 3.6 mmol/L (3.5-5.1); UREA NITROGEN, BLOOD 10 mg/dL (7-18)
[2019-01-21 17:59] LABS: *AMPHETAMINE, URINE NEGATIVE (NEGATIVE); *BARBITURATE, URINE NEGATIVE (NEGATIVE); *CANNABINOID, URINE POSITIVE (NEGATIVE); *COCCAINE, URINE NEGATIVE (NEGATIVE); *OPIATE, URINE POSITIVE (NEGATIVE); *PHENCYCLIDINE SCREEN,URINE NEGATIVE (NEGATIVE)
[2019-01-21 18:00] LABS: MUCUS,URINE FEW /LPF (0-FEW); WBC,URINE NONE SEEN /HPF (0-3)
[2019-01-21 18:00] LABS: ETHANOL 109 MG/DL (0-0)
[2019-01-21 18:02] LABS: ALANINE AMINOTRANSFERASE 24 U/L (16-63); ALKALINE PHOSPHATASE 77 U/L (50-136); ASPARTATE AMINOTRANSFERASE 17 U/L (15-37); BILIRUBIN,DIRECT 0.1 mg/dL (0.0-0.2); BILIRUBIN,TOTAL 0.3 mg/dL (0.2-1.0); TOTAL PROTEIN, SERUM 8.1 g/dL (6.4-8.2)
[2019-01-21 18:05] LABS: ACETAMINOPHEN < 2.0 ug/mL (10-30)
--- NOTE | 2019-01-21 18:07 | NUR ---
I CALLED [facility] GUEVARA FOR EVAL...
--- NOTE | 2019-01-21 18:30 | NUR ---
PAOLA MCKEON SPEAKING TO PATIENT.
--- NOTE | 2019-01-21 18:52 | NUR ---
PATIENT STATES HE HAS HEALTH INSURANCE AND DOES NOT NEED HELP WITH THAT. STATES HE USE TO LIVE IN [place] WHERE HIS PARENTS LIVE BUT HAS BEEN HOMELESS SINCE HE MOVED TO [place]. 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 STATES HE DOES ABUSE DRUGS AND ALCOHOL. HE IS AMBULATORY WITH STEADY GAIT.
--- NOTE | 2019-01-21 19:03 | NUR ---
HAND OFF REPORT GIVEN TO ALF DUMONT
--- NOTE | 2019-01-21 20:16 | NUR ---
Called [facility] intake, spoke herlinda Gomez, regarding update for pt voluntary admission/beds available. Pending call back from [place].
--- NOTE | 2019-01-21 21:23 | NUR ---
Caroline Niño ([facility] intake). Pt to be transferred to [facility]. Admitting is Dr. Moe. Phone# for report is [phone]
--- NOTE | 2019-01-21 21:30 | NUR ---
Gave report to IJ
--- NOTE | 2019-01-21 21:41 | NUR ---
Romeo patino for transportation to [facility]. ETA 1 hr @ 0709. Trip#[phone]
--- NOTE | 2019-01-21 22:22 | NUR ---
[facility] [address] here to transport pt to [facility]. VSS. No acute distress noted. All belongings w pt.
== END 2019-01-21 22:36 | disposition short-term general hospital (02) ==
LOC: ER 15:35
DX: F32.9 Major depressive disorder, single episode, unspecified (principal); F20.9 Schizophrenia, unspecified; F17.200 Nicotine dependence, unspecified, uncomplicated; F15.10 Other stimulant abuse, uncomplicated; F11.10 Opioid abuse, uncomplicated; Z79.899 Other long term (current) drug therapy
CPT/HCPCS: 36415; 71045; 80048; 80076; 80307; 81001; 85025; 93005; 99285; G0480 ×2; G0481; A4663

== ENCOUNTER 2019-01-30 23:27 | Emergency (ER) | payer OTHER ==
[~2019-01-30] VITALS: Ht 162.6 cm; Wt 61.7 kg
--- NOTE | 2019-01-31 00:18 | NUR ---
Pt. ambulated into ED w/ c/o SI w/ a plan - states he would jump off a bridge, reports AH that tell him to hurt himself and reports hx of schizoaffective disorder - states he is compliant on medication, pt. put close to nursing station w/ door kept open and put on suicide precautions,
[2019-01-31 00:19] LABS: BASOPHILS # (AUTO) 0.1 K/uL (0.0-8.0); BASOPHILS % (AUTO) 0.5 % (0.0-2.0); EOSINOPHILS # (AUTO) 0.1 K/uL (0.0-0.7); EOSINOPHILS % (AUTO) 0.4 % (0.0-7.0); HEMATOCRIT 37.3 % (36.7-47.1); HEMOGLOBIN 12.9 g/dL (12.5-16.3); LYMPHOCYTES # (AUTO) 2.2 K/uL (20.0-40.0); MEAN CORPUSCULAR HGB CONC 35 g/dL (32.5-36.3); MEAN CORPUSCULAR VOLUME 86.8 fL (73.0-96.2); MONOCYTES % (AUTO) 8.6 % (0.0-11.0); NEUTROPHILS # (AUTO) 8.8 K/uL (1.8-8.9); NEUTROPHILS % (AUTO) 72.5 % (38.5-71.5); PLATELET COUNT (AUTO) 295 K/uL (152-348); WHITE BLOOD COUNT (AUTO) 12.1 K/uL (3.6-10.2)
--- NOTE | 2019-01-31 00:23 | NUR ---
Called Drying Room Supervisor for sitter, pt. belongings bagged and put in nursing station,
[2019-01-31 00:25] LABS: CARBON DIOXIDE 29 mmol/L (21-32); CHLORIDE 96 mmol/L (98-107); CREATININE 0.7 mg/dL (0.6-1.3); GLUCOSE 99 mg/dL (74-106); POTASSIUM 3.4 mmol/L (3.5-5.1); UREA NITROGEN, BLOOD 12 mg/dL (7-18)
[2019-01-31 00:31] LABS: ALANINE AMINOTRANSFERASE 20 U/L (16-63); ALKALINE PHOSPHATASE 73 U/L (50-136); ASPARTATE AMINOTRANSFERASE 19 U/L (15-37); BILIRUBIN,DIRECT 0.1 mg/dL (0.0-0.2); BILIRUBIN,TOTAL 0.3 mg/dL (0.2-1.0); TOTAL PROTEIN, SERUM 8.7 g/dL (6.4-8.2)
--- NOTE | 2019-01-31 00:33 | NUR ---
Security at bedside for pt. safety
[2019-01-31 00:38] LABS: ACETAMINOPHEN < 2.0 ug/mL (10-30)
[2019-01-31 00:42] LABS: ETHANOL < 3 MG/DL (0-0)
[2019-01-31 00:58] LABS: *AMPHETAMINE, URINE POSITIVE (NEGATIVE); *BARBITURATE, URINE NEGATIVE (NEGATIVE); *CANNABINOID, URINE POSITIVE (NEGATIVE); *COCCAINE, URINE POSITIVE (NEGATIVE); *OPIATE, URINE POSITIVE (NEGATIVE); *PHENCYCLIDINE SCREEN,URINE NEGATIVE (NEGATIVE)
--- NOTE | 2019-01-31 02:30 | NUR ---
Tyree TRAUMA COORDINATOR at bedside for crisis evaluation
--- NOTE | 2019-01-31 03:41 | NUR ---
Pt. resting in bed, security at bedside, all needs met, NAD
[2019-01-31] MEDS ORDERED: POTASSIUM CHLORIDE 20 MEQ TAB.PRT.SR PO ONE (04:15)
[2019-01-31] MEDS ORDERED: IV NORMAL SALINE 1000 ML BAG IV ONE (04:30)
[2019-01-31] MEDS ORDERED: POTASSIUM CHLORIDE 20 MEQ TAB.PRT.SR ONE (04:45)
--- NOTE | 2019-01-31 04:51 | NUR ---
Gave report to Filippo
--- NOTE | 2019-01-31 04:54 | NUR ---
[facility] araceli pate/ Yan QUINTERO 1958 trip#[id number]
--- NOTE | 2019-01-31 05:07 | NUR ---
Recieved call from Territory Sales Consultant Jeny at [facility] - pt. unable to to be accepted d/t heroin usage 2 days ago, notified Dr. Mccall, called [facility] to cancel transport,
--- NOTE | 2019-01-31 05:24 | NUR ---
Patient given written and verbal discharge instructions. Patient verbalizes understanding of instructions. Patient is ambulatory with steady gait. Refuses offer of detention placement. Patient given list of available shelters in surrounding area. Pt. d/c w/ prescription per MD order, d/c papers signed, all belongings w/ pt., ID/IV removed, homeless waiver signed and resource packet given - pt. instructed to come back during normal daytime business hours for further assistance by SW for detention placement, ambulated off unit w/ steady gait, NAD
== END 2019-01-31 05:28 | disposition home or self-care (01) ==
LOC: ER 23:27
DX: F32.9 Major depressive disorder, single episode, unspecified (principal); F20.9 Schizophrenia, unspecified; Z71.6 Tobacco abuse counseling; F11.10 Opioid abuse, uncomplicated; F15.10 Other stimulant abuse, uncomplicated; F17.290 Nicotine dependence, other tobacco product, uncomplicated; Z79.899 Other long term (current) drug therapy; Z59.0 Homelessness
CPT/HCPCS: 36415; 80048; 80076; 80307; 85025; 99284; 99406; G0480 ×2; G0481; A4663; J7030

== ENCOUNTER 2019-02-02 17:16 | Emergency (ER) | payer OTHER ==
[~2019-02-02] VITALS: Ht 162.6 cm; Wt 61.7 kg
[2019-02-02] MEDS ORDERED: QUET25TA3 (17:39)
--- NOTE | 2019-02-02 17:49 | NUR ---
RECEIVED A 38 Y/O MALE PT FOR MEDICAL CLEARANCE . REPORTING SUICIDAL IDEATION. PT SEEN BY MD, LABS TAKEN, AND AWAITING FOR A 1:1 SITTER
[2019-02-02 17:55] LABS: BASOPHILS % (AUTO) 0.5 % (0.0-2.0); EOSINOPHILS # (AUTO) 0.1 K/uL (0.0-0.7); HEMATOCRIT 36.4 % (36.7-47.1); HEMOGLOBIN 12.4 g/dL (12.5-16.3); LYMPHOCYTES % (AUTO) 21.4 % (20.5-51.5); MEAN CORPUSCULAR HEMOGLOBIN 29.7 uug (23.8-33.4); MEAN CORPUSCULAR HGB CONC 34 g/dL (32.5-36.3); MEAN CORPUSCULAR VOLUME 86.9 fL (73.0-96.2); MONOCYTES % (AUTO) 11.4 % (0.0-11.0); NEUTROPHILS % (AUTO) 65.7 % (38.5-71.5); PLATELET COUNT (AUTO) 331 K/uL (152-348); RED BLOOD CELL COUNT(AUTO) 4.19 MIL/uL (4.06-5.63); WHITE BLOOD COUNT (AUTO) 9.1 K/uL (3.6-10.2)
[2019-02-02 18:00] LABS: CARBON DIOXIDE 28 mmol/L (21-32); CHLORIDE 99 mmol/L (98-107); CREATININE 0.7 mg/dL (0.6-1.3); GLUCOSE 108 mg/dL (74-106); POTASSIUM 3.8 mmol/L (3.5-5.1); UREA NITROGEN, BLOOD 16 mg/dL (7-18)
[2019-02-02 18:06] LABS: ALANINE AMINOTRANSFERASE 17 U/L (16-63); ALKALINE PHOSPHATASE 77 U/L (50-136); ASPARTATE AMINOTRANSFERASE 14 U/L (15-37); BILIRUBIN,DIRECT 0.1 mg/dL (0.0-0.2); BILIRUBIN,TOTAL 0.2 mg/dL (0.2-1.0); ETHANOL < 3 MG/DL (0-0)
[2019-02-02 18:07] LABS: ACETAMINOPHEN < 2.0 ug/mL (10-30)
--- NOTE | 2019-02-02 18:30 | NUR ---
called arnie scott for psych eval and left a message.
[2019-02-02 18:56] LABS: *BILIRUBIN,URIN NEGATIVE (NEGATIVE); *BLOOD, URINE NEGATIVE (NEGATIVE); *CLARITY,URINE CLEAR (CLEAR); *COLOR,URINE YELLOW (YELLOW); *KETONES,URINE NEGATIVE (NEGATIVE); *UROBILINOGEN,URINE 0.2 E.U./dl (NORMAL); LEUKOCYTE ESTERASE ,URINE NEGATIVE (NEGATIVE); NITRITE, URINE NEGATIVE (NEGATIVE); PH,URINE 7.5 (5.0-8.0); UGLUCOSE NEGATIVE (NEGATIVE)
--- NOTE | 2019-02-02 19:00 | NUR ---
REPORT GIVEN TO TIM STAFFORD
[2019-02-02 19:05] LABS: *AMPHETAMINE, URINE NEGATIVE (NEGATIVE); *BARBITURATE, URINE NEGATIVE (NEGATIVE); *CANNABINOID, URINE POSITIVE (NEGATIVE); *COCCAINE, URINE NEGATIVE (NEGATIVE); *OPIATE, URINE POSITIVE (NEGATIVE); *PHENCYCLIDINE SCREEN,URINE NEGATIVE (NEGATIVE)
--- NOTE | 2019-02-02 19:22 | NUR ---
Justin EVANSW, states will be in ER in 10min for psych eval.
--- NOTE | 2019-02-02 19:39 | NUR ---
Justin Walton at bedside for pt psych eval.
--- NOTE | 2019-02-02 19:39 | NUR ---
Graciela albert in EDM - 02/02/19 at 2010 by JUSTINO Justin Walton LCSW at [facility] for MSE.
--- NOTE | 2019-02-02 21:38 | NUR ---
Received call from [facility]. Receiving MD is Dr. Presley. Given # to report ext [phone]
--- NOTE | 2019-02-02 21:42 | NUR ---
Called [facility] for transport of patient to [facility] INGRID [address], Trip#[id number]
--- NOTE | 2019-02-02 21:54 | NUR ---
Report given to Marivel [facility].
--- NOTE | 2019-02-02 22:45 | NUR ---
Evgeny arrived to ER to transport patient to [facility]. Report and documentation given to EMT
== END 2019-02-02 23:14 | disposition short-term general hospital (02) ==
LOC: ER 17:16
DX: F20.9 Schizophrenia, unspecified (principal); R45.851 Suicidal ideations; F32.9 Major depressive disorder, single episode, unspecified; F11.10 Opioid abuse, uncomplicated; F14.10 Cocaine abuse, uncomplicated; F17.200 Nicotine dependence, unspecified, uncomplicated; Z59.0 Homelessness; Z79.899 Other long term (current) drug therapy
CPT/HCPCS: 36415; 80048; 80076; 80307; 81001; 85025; 99285; G0480 ×2; G0481; A4663

== ENCOUNTER 2019-02-21 21:15 | Emergency (ER) | payer OTHER ==
[~2019-02-21] VITALS: Ht 162.6 cm; Wt 61.7 kg
[~2019-02-21 21:15] MED LIST changes: +QUET25TA3
--- NOTE | 2019-02-21 21:27 | NUR ---
Pt ambulates to ER with c/o chronic left ankle pain, denies trauma or injury to area. No redness/swelling. No acute distress noted.
[2019-02-21] MEDS ORDERED: HYDROCODONE/APAP 10-325 MG TABLET PO ONE (21:30)
[2019-02-21] MEDS ORDERED: HYDROCODONE/APAP 10-325 MG TABLET ONE (21:39)
--- NOTE | 2019-02-21 22:12 | NUR ---
Patient given written and verbal discharge instructions. Patient verbalizes understanding of instructions. Patient is ambulatory with steady gait. Refuses offer of senior living placement. Patient given list of available shelters in surrounding area.
== END 2019-02-21 22:14 | disposition home or self-care (01) ==
LOC: ER 21:17
DX: G89.29 Other chronic pain (principal); M25.572 Pain in left ankle and joints of left foot; M19.072 Primary osteoarthritis, left ankle and foot; F17.200 Nicotine dependence, unspecified, uncomplicated; F11.10 Opioid abuse, uncomplicated; F15.10 Other stimulant abuse, uncomplicated; Z79.899 Other long term (current) drug therapy
CPT/HCPCS: 73610; A4663

== ENCOUNTER 2019-03-06 19:29 | Emergency (ER) | payer OTHER ==
[~2019-03-06] VITALS: Ht 154.9 cm; Wt 64.4 kg
[2019-03-06 20:10] LABS: BASOPHILS % (AUTO) 0.5 % (0.0-2.0); EOSINOPHILS % (AUTO) 0.2 % (0.0-7.0); HEMATOCRIT 39.8 % (36.7-47.1); HEMOGLOBIN 13.9 g/dL (12.5-16.3); LYMPHOCYTES # (AUTO) 2.2 K/uL (20.0-40.0); LYMPHOCYTES % (AUTO) 22.7 % (20.5-51.5); MEAN CORPUSCULAR HEMOGLOBIN 30.4 uug (23.8-33.4); MEAN CORPUSCULAR HGB CONC 35 g/dL (32.5-36.3); MEAN CORPUSCULAR VOLUME 86.7 fL (73.0-96.2); MONOCYTES # (AUTO) 0.7 K/uL (2.0-10.0); MONOCYTES % (AUTO) 7.3 % (0.0-11.0); NEUTROPHILS # (AUTO) 6.7 K/uL (1.8-8.9); NEUTROPHILS % (AUTO) 69.3 % (38.5-71.5); PLATELET COUNT (AUTO) 328 K/uL (152-348); RED BLOOD CELL COUNT(AUTO) 4.59 MIL/uL (4.06-5.63); WHITE BLOOD COUNT (AUTO) 9.7 K/uL (3.6-10.2)
[2019-03-06 20:18] LABS: CARBON DIOXIDE 25 mmol/L (21-32); CHLORIDE 100 mmol/L (98-107); CREATININE 0.8 mg/dL (0.6-1.3); GLUCOSE 118 mg/dL (74-106); POTASSIUM 3.4 mmol/L (3.5-5.1); UREA NITROGEN, BLOOD 16 mg/dL (7-18)
[2019-03-06 20:25] LABS: ALANINE AMINOTRANSFERASE 33 U/L (16-63); ALKALINE PHOSPHATASE 65 U/L (50-136); ASPARTATE AMINOTRANSFERASE 15 U/L (15-37); BILIRUBIN,DIRECT 0.1 mg/dL (0.0-0.2); BILIRUBIN,TOTAL 0.1 mg/dL (0.2-1.0); TOTAL PROTEIN, SERUM 7.9 g/dL (6.4-8.2)
[2019-03-06 20:27] LABS: ACETAMINOPHEN < 2.0 ug/mL (10-30)
[2019-03-06 20:28] LABS: ETHANOL 110 MG/DL (0-0)
[2019-03-06 20:37] LABS: *BILIRUBIN,URIN NEGATIVE (NEGATIVE); *BLOOD, URINE NEGATIVE (NEGATIVE); *CLARITY,URINE CLEAR (CLEAR); *COLOR,URINE YELLOW (YELLOW); *KETONES,URINE NEGATIVE (NEGATIVE); *UROBILINOGEN,URINE 0.2 E.U./dl (NORMAL); LEUKOCYTE ESTERASE ,URINE NEGATIVE (NEGATIVE); NITRITE, URINE NEGATIVE (NEGATIVE); PH,URINE 5.5 (5.0-8.0); UGLUCOSE NEGATIVE (NEGATIVE)
[2019-03-06 20:48] LABS: MUCUS,URINE FEW /LPF (0-FEW); WBC,URINE 0-3 /HPF (0-3)
[2019-03-06 20:55] LABS: *AMPHETAMINE, URINE NEGATIVE (NEGATIVE); *BARBITURATE, URINE NEGATIVE (NEGATIVE); *CANNABINOID, URINE POSITIVE (NEGATIVE); *COCCAINE, URINE NEGATIVE (NEGATIVE); *OPIATE, URINE NEGATIVE (NEGATIVE); *PHENCYCLIDINE SCREEN,URINE NEGATIVE (NEGATIVE)
--- NOTE | 2019-03-06 21:19 | NUR ---
Patient noted pacing, stated he is not suicidal. He wants to leave. Instructed patient that he can not leave until he has been evaluated by crisis team.
--- NOTE | 2019-03-06 22:40 | NUR ---
Per patient, he denies having any suicidal ideation upon assessment by TIM Keith. Patient was offered a list of shelters, but refused.
--- NOTE | 2019-03-06 22:44 | NUR ---
Patient given written and verbal discharge instructions. Patient verbalizes understanding of instructions. Patient is ambulatory with steady gait. Refuses offer of [facility] placement. Patient given list of available shelters in surrounding area. Patient ambulated with stable gait.
== END 2019-03-06 22:45 | disposition home or self-care (01) ==
LOC: ER 19:33
DX: F25.9 Schizoaffective disorder, unspecified (principal); F17.200 Nicotine dependence, unspecified, uncomplicated; F12.10 Cannabis abuse, uncomplicated; F11.10 Opioid abuse, uncomplicated; Z59.0 Homelessness
CPT/HCPCS: 36415; 80048; 80076; 80307; 81001; 85025; 99284; G0480 ×2; G0481; A4663

== ENCOUNTER 2019-03-07 19:35 | Emergency (ER) | payer OTHER ==
[~2019-03-07] VITALS: Ht 162.6 cm; Wt 64.4 kg
--- NOTE | 2019-03-07 19:47 | NUR ---
NURSING FURNACE MECHANIC CALLED FOR 1:1 SITTER. DOG AND CAT FOOD COOK CALLED. DOG AND CAT FOOD COOK AT BEDSIDE FOR 1:1 OBSERVATION FOR SAFETY PRECAUTION.
--- NOTE | 2019-03-07 19:53 | NUR ---
Fawad, security, at bedside for sitting.
[2019-03-07 20:00] LABS: BASOPHILS # (AUTO) 0.1 K/uL (0.0-8.0); BASOPHILS % (AUTO) 0.7 % (0.0-2.0); EOSINOPHILS % (AUTO) 0.3 % (0.0-7.0); HEMATOCRIT 38.7 % (36.7-47.1); HEMOGLOBIN 13.5 g/dL (12.5-16.3); LYMPHOCYTES # (AUTO) 2.7 K/uL (20.0-40.0); LYMPHOCYTES % (AUTO) 19.9 % (20.5-51.5); MEAN CORPUSCULAR HEMOGLOBIN 30.4 uug (23.8-33.4); MEAN CORPUSCULAR HGB CONC 35 g/dL (32.5-36.3); MEAN CORPUSCULAR VOLUME 87.1 fL (73.0-96.2); MONOCYTES # (AUTO) 1.3 K/uL (2.0-10.0); MONOCYTES % (AUTO) 9.6 % (0.0-11.0); NEUTROPHILS # (AUTO) 9.3 K/uL (1.8-8.9); NEUTROPHILS % (AUTO) 69.5 % (38.5-71.5); PLATELET COUNT (AUTO) 318 K/uL (152-348); RED BLOOD CELL COUNT(AUTO) 4.44 MIL/uL (4.06-5.63); WHITE BLOOD COUNT (AUTO) 13.4 K/uL (3.6-10.2)
[2019-03-07] MEDS ORDERED: KETOROLAC TROMETHAMINE 30 MG INJ IM ONE (20:00)
--- NOTE | 2019-03-07 20:00 | NUR ---
PT PROVIDED W/ SANDWICH AND WATER.
[2019-03-07 20:04] LABS: CREATININE 0.8 mg/dL (0.6-1.3); POTASSIUM 3.5 mmol/L (3.5-5.1)
[2019-03-07] MEDS ORDERED: KETOROLAC TROMETHAMINE 30 MG INJ ONE (20:05)
[2019-03-07 20:09] LABS: *AMPHETAMINE, URINE NEGATIVE (NEGATIVE); *BARBITURATE, URINE NEGATIVE (NEGATIVE); *CANNABINOID, URINE POSITIVE (NEGATIVE); *COCCAINE, URINE NEGATIVE (NEGATIVE); *OPIATE, URINE NEGATIVE (NEGATIVE); *PHENCYCLIDINE SCREEN,URINE NEGATIVE (NEGATIVE)
[2019-03-07 20:10] LABS: BILIRUBIN,DIRECT 0.1 mg/dL (0.0-0.2); BILIRUBIN,TOTAL 0.2 mg/dL (0.2-1.0)
[2019-03-07 20:24] LABS: ETHANOL < 3 MG/DL (0-0)
--- NOTE | 2019-03-07 20:34 | NUR ---
Griselda, crisis team paged for patient evaluation.
--- NOTE | 2019-03-07 20:40 | NUR ---
Griselda, Excellence Coach, called back stating on her way.
--- NOTE | 2019-03-07 21:01 | NUR ---
Graciela albert in [facility] - 03/07/19 at 2108 by AFUA Patient transfered down to CT in stable condition, accompanied by son and two techs
--- NOTE | 2019-03-07 21:11 | NUR ---
Patient in bed with flare worker at bedside for sitting. NAD
--- NOTE | 2019-03-07 22:39 | NUR ---
Patient in bed asleep NAD. Sitter at bedside.
--- NOTE | 2019-03-08 01:12 | NUR ---
Spoke to [facility], she stated she'll contact isabella and call back.
--- NOTE | 2019-03-08 01:56 | NUR ---
Lupe returned call, and stated Dr. Moe at [facility] accepts the patient, phone number to give report [phone]. Report to be given at 0400 and request to have patient picked up and transfered by 0700.
--- NOTE | 2019-03-08 04:42 | NUR ---
Report given to Monisha at [facility].
--- NOTE | 2019-03-08 04:51 | NUR ---
Bang called to set up for transfer. He stated that there will be no available transports until about 0800. Trip# [phone]. Patient will be going to [address]
--- NOTE | 2019-03-08 07:16 | NUR ---
Report given to Day shift nurse
--- NOTE | 2019-03-08 08:15 | NUR ---
Pt left with ambulance for discharge to [facility] rm #[id number]. Full report given to ambulance and all belongings brought with the pt. Pt stable and nad noted upon leaving the ER.
== END 2019-03-08 08:15 | disposition short-term general hospital (02) ==
LOC: ER 19:37
DX: R44.0 Auditory hallucinations (principal); M25.572 Pain in left ankle and joints of left foot; F15.10 Other stimulant abuse, uncomplicated; F11.10 Opioid abuse, uncomplicated; F17.290 Nicotine dependence, other tobacco product, uncomplicated
CPT/HCPCS: 36415; 80048; 80076; 80307; 85025; 96372; 99285; 99406; G0480; J1885; A4663